=== PATIENT | male | born 1965 | race Caucasian/White ===

== ENCOUNTER 2016-07-10 08:53 | Inpatient (IN) | payer MEDICARE, OTHER ==
[~2016-07-10] VITALS: Ht 182.9 cm; Wt 147.4 kg
[~2016-07-10 08:53] MED LIST: ALDACTONE25 MG PO; CARDIZEM CD180 MG PO; CATAPRES 0.1MG0.1 MG PO; CEFTRIAXONE2 GM IV; COREG 25MG TAB25 MG PO; COREG CR10 MG PO; FENOFIBRATE145 MG PO; FERRO-TIME325 MG PO; FUROSEMIDE80 MG PO; HYDRALAZINE HCL50 MG PO; IPRAT-ALBUT 0.5-3 ML INH; KLONOPIN TAB 00.5 MG PO; LANTUS SOL100 UNIT/1 SC; LANTUS100 UNIT/1 SQ; LEVOTHYROXINE50 MCG PO; LISINOPRIL20 MG PO; NORVASC 5 MG TAB5 MG PO; NOVOLOG 10100 UNITS1 SC; PERCOCET 5/325 T1 EA PO; PHOSLO 667 MG667 MG PO; PROAIR HFA8.5 GM INH; PROZAC 20 MG CA20 MG PO; SUBOXONE 8 MG-1 EACH PO; SUBOXONE 8 MG-1 EACH SL; SYMBICORT 160-1 INHA INH; VANCOMYCIN HCL750 MG IV; VENTOLIN HFA8 GM INH; VENTOLIN/PROVE0.5 ML INH; VIBRAMYCIN100 MG PO; VITAMIN C 500500 MG PO
[2016-07-10 09:15] LABS: HEMOGLOBIN 7.7 gm/dl (14.0-17.5); RED BLOOD COUNT 2.97 M/UL (4.20-5.50); WHITE BLOOD COUNT 10.7 K/UL (4.5-11.0)
[2016-07-10] MEDS ORDERED: COREG CR10 MG PO (12:15)
[2016-07-10] MEDS ORDERED: HYDROXYZINE HCL25 MG PO (12:18)
[2016-07-10] MEDS ORDERED: NEURONTIN 400400 MG PO (12:19)
[2016-07-10] MEDS ORDERED: BREO ELLIPTA 11 EACH INH (12:20)
[2016-07-10] MEDS ORDERED: IPRAT-ALBUT 0.5-3 ML INH (12:22)
[2016-07-10] MEDS ORDERED: ASPIR-LOW81 MG PO (12:28)
[2016-07-11 08:02] LABS: RED BLOOD COUNT 2.65 M/UL (4.20-5.50)
[2016-07-11 08:03] LABS: HEMOGLOBIN 6.8 gm/dl (14.0-17.5)
[2016-07-12 04:32] LABS: HEMOGLOBIN 7.2 gm/dl (14.0-17.5); RED BLOOD COUNT 2.75 M/UL (4.20-5.50); WHITE BLOOD COUNT 8.1 K/UL (4.5-11.0)
[2016-07-13 04:09] LABS: HEMOGLOBIN 7.8 gm/dl (14.0-17.5); RED BLOOD COUNT 2.99 M/UL (4.20-5.50); WHITE BLOOD COUNT 7.1 K/UL (4.5-11.0)
[2016-07-14 05:41] LABS: HEMOGLOBIN 9.9 gm/dl (14.0-17.5); RED BLOOD COUNT 3.67 M/UL (4.20-5.50); WHITE BLOOD COUNT 10.2 K/UL (4.5-11.0)
[2016-07-14 15:09] LABS: URINE CREATININE 27.7 mg/dL
[2016-07-15 03:47] LABS: RED BLOOD COUNT 2.81 M/UL (4.20-5.50); WHITE BLOOD COUNT 6.6 K/UL (4.5-11.0)
[2016-07-15 03:48] LABS: HEMOGLOBIN 7.4 gm/dl (14.0-17.5)
[2016-07-16 03:56] LABS: HEMOGLOBIN 7.3 gm/dl (14.0-17.5); RED BLOOD COUNT 2.7 M/UL (4.20-5.50); WHITE BLOOD COUNT 6.2 K/UL (4.5-11.0)
[2016-07-17 05:06] LABS: HEMOGLOBIN 7.2 gm/dl (14.0-17.5); RED BLOOD COUNT 2.75 M/UL (4.20-5.50); WHITE BLOOD COUNT 5.5 K/UL (4.5-11.0)
[2016-07-17] MEDS ORDERED: PIPERACIL-TAZ2.25 GM IV (18:28)
[2016-07-17] MEDS ORDERED: SODIUM CL 0.91000 ML IV (18:31)
[2016-07-18 04:09] LABS: HEMOGLOBIN 7.7 gm/dl (14.0-17.5); RED BLOOD COUNT 2.87 M/UL (4.20-5.50); WHITE BLOOD COUNT 5.3 K/UL (4.5-11.0)
[2016-07-18] MEDS ORDERED: FERROUS SULFAT325 M2 PO (20:20)
[2016-07-18] MEDS ORDERED: IMDUR ER TAB 6060 MG PO (20:21)
[2016-07-18] MEDS ORDERED: ZYVOX 600 MG T600 MG PO (20:21)
[2016-07-18] MEDS ORDERED: SPIRIVA HANDIH18 MCG INH (20:22)
[2016-07-18] MEDS ORDERED: VITAMIN C 500500 MG PO (20:28)
[2016-07-18] MEDS ORDERED: NORCO 7.5-3251 EACH PO (20:29)
[2016-12-02] MEDS ORDERED: PHOSLO 667 MG667 MG PO (22:13)
[2016-12-03] MEDS ORDERED: AMLODIPINE BESYL5 MG PO (11:04)
[2016-12-04] MEDS ORDERED: LACTULOSE20 GM/30 M PO (09:53)
[2016-12-04] MEDS ORDERED: SENNA-DOCUSATE1 EACH PO (09:56)
[2016-12-31] MEDS ORDERED: FENOFIBRATE145 MG PO (11:05)
[2017-01-17] MEDS ORDERED: BETADINE TP (15:11)
[2017-01-17] MEDS ORDERED: NYSTATIN1 EAC9 MC (15:13)
[2017-01-17] MEDS ORDERED: PROCRIT10000 UNIT INJ (15:23)
[2017-01-17] MEDS ORDERED: TYLENOL 325MG325 MG PO (15:34)
== END 2016-07-18 20:43 | disposition left against medical advice (07) | DRG 255 ==
LOC: ER1 08:53 → PROG CARE 10:43 → ZEROF 10:43 → PROG CARE 07-11 17:39
PROVIDERS: Emergency Medicine; Hospitalist; Internal Medicine Nephrology; Podiatrist Foot & Ankle Surgery; ADMIT Family Medicine
PROC: 30233N1 Transfusion of Nonautologous Red Blood Cells into Peripheral Vein, Percutaneous Approach (ICD-10-PCS; principal; 2016-07-11)
PROC: 0Y6S0Z1 Detachment at Left 2nd Toe, High, Open Approach (ICD-10-PCS; 2016-07-18 19:30)
PROC: 0HBNXZZ Excision of Left Foot Skin, External Approach (ICD-10-PCS; 2016-07-18 19:30)
DX: E11.52 Type 2 diabetes mellitus with diabetic peripheral angiopathy with gangrene (principal); I50.43 Acute on chronic combined systolic (congestive) and diastolic (congestive) heart failure; J96.21 Acute and chronic respiratory failure with hypoxia; G92 Toxic encephalopathy; J96.22 Acute and chronic respiratory failure with hypercapnia; M86.672 Other chronic osteomyelitis, left ankle and foot; I13.0 Hypertensive heart and chronic kidney disease with heart failure and stage 1 through stage 4 chronic kidney disease, or unspecified chronic kidney disease; E66.2 Morbid (severe) obesity with alveolar hypoventilation; N18.4 Chronic kidney disease, stage 4 (severe); E87.4 Mixed disorder of acid-base balance; Z68.41 Body mass index [BMI] 40.0-44.9, adult; T42.6X1A Poisoning by other antiepileptic and sedative-hypnotic drugs, accidental (unintentional), initial encounter; T40.4X1A Poisoning by other synthetic narcotics, accidental (unintentional), initial encounter; E11.621 Type 2 diabetes mellitus with foot ulcer; L97.529 Non-pressure chronic ulcer of other part of left foot with unspecified severity; Y92.009 Unspecified place in unspecified non-institutional (private) residence as the place of occurrence of the external cause; I20.9 Angina pectoris, unspecified; B95.62 Methicillin resistant Staphylococcus aureus infection as the cause of diseases classified elsewhere; E11.69 Type 2 diabetes mellitus with other specified complication; E78.5 Hyperlipidemia, unspecified; E03.9 Hypothyroidism, unspecified; E87.5 Hyperkalemia; D63.1 Anemia in chronic kidney disease; E11.65 Type 2 diabetes mellitus with hyperglycemia; F17.210 Nicotine dependence, cigarettes, uncomplicated; G89.4 Chronic pain syndrome; F41.9 Anxiety disorder, unspecified; Z91.19 Patient's noncompliance with other medical treatment and regimen; L81.8 Other specified disorders of pigmentation; Z99.81 Dependence on supplemental oxygen; Z87.01 Personal history of pneumonia (recurrent); J44.9 Chronic obstructive pulmonary disease, unspecified; D50.9 Iron deficiency anemia, unspecified; E11.22 Type 2 diabetes mellitus with diabetic chronic kidney disease; Z87.898 Personal history of other specified conditions; Z79.891 Long term (current) use of opiate analgesic; Z79.51 Long term (current) use of inhaled steroids; Z79.899 Other long term (current) drug therapy; Z88.8 Allergy status to other drugs, medicaments and biological substances; Z91.041 Radiographic dye allergy status; Z79.82 Long term (current) use of aspirin; Z79.4 Long term (current) use of insulin
CPT/HCPCS: 36415; 36600; 71010; 73630; 78315; 78452; 80048; 80053; 80307; 81001; 82009; 82550; 82553; 82570; 82575; 82728; 82803; 82962; 83036; 83540; 83550; 83605; 83735; 83874; 83880; 84132; 84484; 85025; 85027; 86140; 86850; 86900; 86901; 86920; 87040; 87070; 87075; 87077; 87186; 87205; 93005; 93017; 94060; 94640; 94660; 94664; 94729; 96365; 96366; 96367; 96375; 96376; 99285; A9502; A9503; J0610; J1644; J1815; J1817; J1940; J1956; J2020; J2060; J2250; J2270; J2310; J2543; J2785; J3010; J3370; J7030; J7050; J7120; P9016

== ENCOUNTER 2016-08-10 00:01 | Inpatient (IN) | payer MEDICARE, OTHER ==
[~2016-08-10] VITALS: Ht 188 cm; Wt 154.8 kg
[~2016-08-10 00:01] MED LIST changes: +ASPIR-LOW81 MG PO; +BREO ELLIPTA 11 EACH INH; +FERROUS SULFAT325 M2 PO; +HYDROXYZINE HCL25 MG PO; +IMDUR ER TAB 6060 MG PO; +NEURONTIN 400400 MG PO; +NORCO 7.5-3251 EACH PO; +PIPERACIL-TAZ2.25 GM IV; +SODIUM CL 0.91000 ML IV; +SPIRIVA HANDIH18 MCG INH; +ZYVOX 600 MG T600 MG PO
[2016-08-10 01:20] LABS: HEMOGLOBIN 7.8 gm/dl (14.0-17.5); RED BLOOD COUNT 2.94 M/UL (4.20-5.50); WHITE BLOOD COUNT 8.4 K/UL (4.5-11.0)
[2016-08-11 07:22] LABS: HEMOGLOBIN 7.1 gm/dl (14.0-17.5); RED BLOOD COUNT 2.65 M/UL (4.20-5.50); WHITE BLOOD COUNT 7.3 K/UL (4.5-11.0)
[2016-08-11 18:21] LABS: HEMOGLOBIN 7.1 gm/dl (14.0-17.5)
[2016-08-12 02:44] LABS: HEMOGLOBIN 7.5 gm/dl (14.0-17.5); RED BLOOD COUNT 2.8 M/UL (4.20-5.50); WHITE BLOOD COUNT 5.5 K/UL (4.5-11.0)
[2016-08-13 04:54] LABS: HEMOGLOBIN 7.8 gm/dl (14.0-17.5); RED BLOOD COUNT 2.89 M/UL (4.20-5.50); WHITE BLOOD COUNT 5.8 K/UL (4.5-11.0)
[2016-08-13 17:34] LABS: URINE CREATININE 62.6 mg/dL
[2016-08-14 04:40] LABS: HEMOGLOBIN 7.4 gm/dl (14.0-17.5); RED BLOOD COUNT 2.73 M/UL (4.20-5.50); WHITE BLOOD COUNT 5.7 K/UL (4.5-11.0)
[2016-08-15 06:07] LABS: RED BLOOD COUNT 2.97 M/UL (4.20-5.50); WHITE BLOOD COUNT 5.4 K/UL (4.5-11.0)
[2016-08-16] MEDS ORDERED: ALPRAZOLAM0.5 MG PO (17:50)
[2016-08-17 06:03] LABS: HEMOGLOBIN 7.7 gm/dl (14.0-17.5); RED BLOOD COUNT 2.85 M/UL (4.20-5.50); WHITE BLOOD COUNT 5.4 K/UL (4.5-11.0)
[2016-08-18 10:21] LABS: HEMOGLOBIN 7.9 gm/dl (14.0-17.5); RED BLOOD COUNT 2.9 M/UL (4.20-5.50); WHITE BLOOD COUNT 5.6 K/UL (4.5-11.0)
[2016-08-19 06:27] LABS: RED BLOOD COUNT 2.97 M/UL (4.20-5.50); WHITE BLOOD COUNT 6.1 K/UL (4.5-11.0)
[2016-08-20 05:36] LABS: RED BLOOD COUNT 2.96 M/UL (4.20-5.50)
[2016-08-21 04:29] LABS: HEMOGLOBIN 7.6 gm/dl (14.0-17.5); RED BLOOD COUNT 2.8 M/UL (4.20-5.50); WHITE BLOOD COUNT 5.6 K/UL (4.5-11.0)
--- NOTE | 2016-08-21 11:52 | NUR ---
PATIENT HAS BEEN GOING OFF THE FLOOR VIA WHEELCHAIR WITH .
--- NOTE | 2016-08-21 15:31 | NUR ---
PATIENT PULSE RANGES 140'S, NO S/SX OF CARDIAC INSUFFICIENCY NOTED. DR. RAMON NOTIFIED. ORDERS RECEIVED
[2016-08-21 15:54] LABS: HEMOGLOBIN 7.3 gm/dl (14.0-17.5)
[2016-08-22 06:22] LABS: HEMOGLOBIN 7.5 gm/dl (14.0-17.5); RED BLOOD COUNT 2.78 M/UL (4.20-5.50); WHITE BLOOD COUNT 6.3 K/UL (4.5-11.0)
--- NOTE | 2016-08-22 16:19 | NUR ---
REQUESTED TO ALLOW PATIENT TO SLEEP AND NOT TO BOTHER WHEN HE CAME BACK FROM PACU. PATIENT RESTING COMFORTABLY AT THIS TIME
[2016-08-23 06:28] LABS: HEMOGLOBIN 7.9 gm/dl (14.0-17.5); RED BLOOD COUNT 2.91 M/UL (4.20-5.50); WHITE BLOOD COUNT 7.7 K/UL (4.5-11.0)
[2016-12-02] MEDS ORDERED: PHOSLO 667 MG667 MG PO (22:13)
[2016-12-03] MEDS ORDERED: AMLODIPINE BESYL5 MG PO (11:04)
[2016-12-04] MEDS ORDERED: LACTULOSE20 GM/30 M PO (09:53)
[2016-12-04] MEDS ORDERED: SENNA-DOCUSATE1 EACH PO (09:56)
[2016-12-31] MEDS ORDERED: FENOFIBRATE145 MG PO (11:05)
[2017-01-17] MEDS ORDERED: BETADINE TP (15:11)
[2017-01-17] MEDS ORDERED: NYSTATIN1 EAC9 MC (15:13)
[2017-01-17] MEDS ORDERED: PROCRIT10000 UNIT INJ (15:23)
[2017-01-17] MEDS ORDERED: TYLENOL 325MG325 MG PO (15:34)
== END 2016-08-23 12:45 | disposition left against medical advice (07) | DRG 673 ==
LOC: ER1 00:01 → ZEROF 02:50 → MED SURG 4 02:50
PROVIDERS: Emergency Medicine; Family Medicine; Hospitalist; Internal Medicine; Internal Medicine Infectious Disease; Internal Medicine Nephrology; Surgery; ADMIT Internal Medicine
PROC: 30233N1 Transfusion of Nonautologous Red Blood Cells into Peripheral Vein, Percutaneous Approach (ICD-10-PCS; 2016-08-11)
PROC: 5A1D60Z (ICD-10-PCS; 2016-08-18)
PROC: 04HK33Z Insertion of Infusion Device into Right Femoral Artery, Percutaneous Approach (ICD-10-PCS; 2016-08-18)
PROC: 02HV33Z Insertion of Infusion Device into Superior Vena Cava, Percutaneous Approach (ICD-10-PCS; 2016-08-22)
PROC: B518ZZA Fluoroscopy of Superior Vena Cava, Guidance (ICD-10-PCS; 2016-08-22)
PROC: B548ZZA Ultrasonography of Superior Vena Cava, Guidance (ICD-10-PCS; 2016-08-22)
PROC: 0JH63XZ Insertion of Tunneled Vascular Access Device into Chest Subcutaneous Tissue and Fascia, Percutaneous Approach (ICD-10-PCS; principal; 2016-08-22 13:00)
DX: N17.9 Acute kidney failure, unspecified (principal); I50.33 Acute on chronic diastolic (congestive) heart failure; J96.22 Acute and chronic respiratory failure with hypercapnia; J96.21 Acute and chronic respiratory failure with hypoxia; G93.40 Encephalopathy, unspecified; I13.2 Hypertensive heart and chronic kidney disease with heart failure and with stage 5 chronic kidney disease, or end stage renal disease; E87.2 Acidosis; M86.672 Other chronic osteomyelitis, left ankle and foot; E66.2 Morbid (severe) obesity with alveolar hypoventilation; Z68.42 Body mass index [BMI] 45.0-49.9, adult; Q61.01 Congenital single renal cyst; E11.22 Type 2 diabetes mellitus with diabetic chronic kidney disease; N18.6 End stage renal disease; D63.1 Anemia in chronic kidney disease; E87.5 Hyperkalemia; I25.119 Atherosclerotic heart disease of native coronary artery with unspecified angina pectoris; E11.21 Type 2 diabetes mellitus with diabetic nephropathy; E11.40 Type 2 diabetes mellitus with diabetic neuropathy, unspecified; E11.69 Type 2 diabetes mellitus with other specified complication; B95.62 Methicillin resistant Staphylococcus aureus infection as the cause of diseases classified elsewhere; J44.9 Chronic obstructive pulmonary disease, unspecified; E03.9 Hypothyroidism, unspecified; I27.2 Other secondary pulmonary hypertension; I87.8 Other specified disorders of veins; E78.5 Hyperlipidemia, unspecified; M51.36 Other intervertebral disc degeneration, lumbar region; G89.4 Chronic pain syndrome; R00.0 Tachycardia, unspecified; R74.8 Abnormal levels of other serum enzymes; F17.210 Nicotine dependence, cigarettes, uncomplicated; K59.00 Constipation, unspecified; F41.9 Anxiety disorder, unspecified; Z86.718 Personal history of other venous thrombosis and embolism; Z91.11 Patient's noncompliance with dietary regimen; Z91.19 Patient's noncompliance with other medical treatment and regimen; Z99.81 Dependence on supplemental oxygen; Z79.51 Long term (current) use of inhaled steroids; Z79.4 Long term (current) use of insulin; Z79.891 Long term (current) use of opiate analgesic; Z79.82 Long term (current) use of aspirin; Z79.899 Other long term (current) drug therapy; Z88.8 Allergy status to other drugs, medicaments and biological substances; Z88.5 Allergy status to narcotic agent; Z91.041 Radiographic dye allergy status; Z89.412 Acquired absence of left great toe; Z89.422 Acquired absence of other left toe(s); Z90.49 Acquired absence of other specified parts of digestive tract; Z98.890 Other specified postprocedural states; Z80.1 Family history of malignant neoplasm of trachea, bronchus and lung; Z80.41 Family history of malignant neoplasm of ovary; Z82.3 Family history of stroke; Z82.49 Family history of ischemic heart disease and other diseases of the circulatory system; Z83.3 Family history of diabetes mellitus
CPT/HCPCS: 36415; 36600; 71010; 71020; 77001; 80048; 80053; 80069; 80074; 81001; 82272; 82550; 82553; 82570; 82575; 82607; 82728; 82803; 82962; 83540; 83550; 83735; 83874; 83880; 84100; 84132; 84484; 85014; 85018; 85025; 85027; 85610; 85730; 86140; 86850; 86900; 86901; 86920; 87077; 87086; 87186; 90935; 90937; 93005; 94640; 94664; 99285; C1769; G0378; J0690; J1644; J1940; J2250; J7030; J7040; J7050; J7120; P9016; Q0163; Q4081

== ENCOUNTER 2016-08-24 00:09 | Emergency (ER) | payer MEDICARE, OTHER ==
[~2016-08-24 00:09] MED LIST changes: +ALPRAZOLAM0.5 MG PO
[2016-12-02] MEDS ORDERED: PHOSLO 667 MG667 MG PO (22:13)
[2016-12-03] MEDS ORDERED: AMLODIPINE BESYL5 MG PO (11:04)
[2016-12-04] MEDS ORDERED: LACTULOSE20 GM/30 M PO (09:53)
[2016-12-04] MEDS ORDERED: SENNA-DOCUSATE1 EACH PO (09:56)
[2016-12-31] MEDS ORDERED: FENOFIBRATE145 MG PO (11:05)
[2017-01-17] MEDS ORDERED: BETADINE TP (15:11)
[2017-01-17] MEDS ORDERED: NYSTATIN1 EAC9 MC (15:13)
[2017-01-17] MEDS ORDERED: PROCRIT10000 UNIT INJ (15:23)
[2017-01-17] MEDS ORDERED: TYLENOL 325MG325 MG PO (15:34)
== END 2016-08-24 00:30 | disposition left against medical advice (07) ==
LOC: ER1 00:09
DX: Z49.01 Encounter for fitting and adjustment of extracorporeal dialysis catheter (principal); R00.0 Tachycardia, unspecified; Z91.041 Radiographic dye allergy status
CPT/HCPCS: 99284

== ENCOUNTER 2016-08-27 02:49 | Inpatient (IN) | payer MEDICARE, OTHER ==
[~2016-08-27] VITALS: Ht 186.7 cm; Wt 149.7 kg
[2016-08-27 03:32] LABS: HEMOGLOBIN 8.8 gm/dl (14.0-17.5); RED BLOOD COUNT 3.26 M/UL (4.20-5.50); WHITE BLOOD COUNT 9.5 K/UL (4.5-11.0)
[2016-08-27 03:54] LABS: BUN/CREATININE RATIO 9 (0-10)
[2016-08-27] MEDS ORDERED: DULERA 100 MCG8.8 GM INH (14:41)
[2016-08-27] MEDS ORDERED: COREG CR 10 MG10 MG PO (14:54)
[2016-08-27] MEDS ORDERED: DILTIAZEM 24HR360 MG PO (14:55)
[2016-08-27] MEDS ORDERED: NEURONTIN 400400 MG PO (14:56)
[2016-08-27] MEDS ORDERED: LASIX 40 MG TAB40 MG PO (14:57)
[2016-08-27] MEDS ORDERED: FENOFIBRATE145 MG PO (15:19)
[2016-08-27] MEDS ORDERED: PROZAC 20 MG CA20 MG PO (15:20)
[2016-08-27] MEDS ORDERED: SYNTHROID 50 M50 MCG PO (15:20)
[2016-08-27] MEDS ORDERED: SPIRONOLACTONE25 MG PO (15:21)
[2016-08-27] MEDS ORDERED: ZYVOX 600 MG T600 MG PO (15:22)
[2016-08-27] MEDS ORDERED: VIBRAMYCIN 100100 MG PO (15:22)
[2016-08-28 06:04] LABS: HEMOGLOBIN 7.1 gm/dl (14.0-17.5); WHITE BLOOD COUNT 8.2 K/UL (4.5-11.0)
[2016-08-28 06:13] LABS: RED BLOOD COUNT 2.62 M/UL (4.20-5.50)
[2016-08-28 06:24] LABS: BUN/CREATININE RATIO 10 (0-10)
[2016-08-29 13:50] LABS: RED BLOOD COUNT 2.56 M/UL (4.20-5.50); WHITE BLOOD COUNT 6.6 K/UL (4.5-11.0)
[2016-08-30 04:56] LABS: RED BLOOD COUNT 2.57 M/UL (4.20-5.50); WHITE BLOOD COUNT 7.9 K/UL (4.5-11.0)
[2016-08-30 05:02] LABS: HEMOGLOBIN 6.9 gm/dl (14.0-17.5)
[2016-08-31 13:22] LABS: HEMOGLOBIN 8.9 gm/dl (14.0-17.5); RED BLOOD COUNT 3.24 M/UL (4.20-5.50); WHITE BLOOD COUNT 8.6 K/UL (4.5-11.0)
[2016-09-01 10:01] LABS: HEMOGLOBIN 8.3 gm/dl (14.0-17.5); RED BLOOD COUNT 3.06 M/UL (4.20-5.50); WHITE BLOOD COUNT 8.3 K/UL (4.5-11.0)
[2016-09-01] MEDS ORDERED: LIPITOR TAB 2020 MG PO (13:15)
[2016-09-01] MEDS ORDERED: CATAPRES 0.1MG0.1 MG PO (13:16)
[2016-09-01] MEDS ORDERED: LANTUS100 UNIT/1 SQ (13:18)
[2016-09-01] MEDS ORDERED: COUMADIN 2.5MG2.5 MG PO (13:19)
[2016-09-01] MEDS ORDERED: PROCRIT10000 UNIT INJ (13:40)
[2016-09-01] MEDS ORDERED: ENSURE LIQUID237 ML PO (13:42)
[2016-12-02] MEDS ORDERED: PHOSLO 667 MG667 MG PO (22:13)
[2016-12-03] MEDS ORDERED: AMLODIPINE BESYL5 MG PO (11:04)
[2016-12-04] MEDS ORDERED: LACTULOSE20 GM/30 M PO (09:53)
[2016-12-04] MEDS ORDERED: SENNA-DOCUSATE1 EACH PO (09:56)
[2016-12-31] MEDS ORDERED: FENOFIBRATE145 MG PO (11:05)
[2017-01-17] MEDS ORDERED: BETADINE TP (15:11)
[2017-01-17] MEDS ORDERED: NYSTATIN1 EAC9 MC (15:13)
[2017-01-17] MEDS ORDERED: PROCRIT10000 UNIT INJ (15:23)
[2017-01-17] MEDS ORDERED: TYLENOL 325MG325 MG PO (15:34)
== END 2016-09-01 14:16 | disposition home or self-care (01) | DRG 286 ==
LOC: ER1 02:49 → PROG CARE 05:00 → ZEROF 05:00 → M/S 05:00 → PROG CARE 13:52 → M/S 08-30 09:31
PROVIDERS: Emergency Medicine; Internal Medicine; ADMIT Internal Medicine
PROC: 30233N1 Transfusion of Nonautologous Red Blood Cells into Peripheral Vein, Percutaneous Approach (ICD-10-PCS; principal; 2016-08-28)
PROC: 4A023N7 Measurement of Cardiac Sampling and Pressure, Left Heart, Percutaneous Approach (ICD-10-PCS; 2016-08-29)
PROC: B2111ZZ Fluoroscopy of Multiple Coronary Arteries using Low Osmolar Contrast (ICD-10-PCS; 2016-08-29)
PROC: B51C1ZA Fluoroscopy of Left Lower Extremity Veins using Low Osmolar Contrast, Guidance (ICD-10-PCS; 2016-08-30)
PROC: 06HN33Z Insertion of Infusion Device into Left Femoral Vein, Percutaneous Approach (ICD-10-PCS; 2016-08-30)
PROC: 05HM33Z Insertion of Infusion Device into Right Internal Jugular Vein, Percutaneous Approach (ICD-10-PCS; 2016-08-31)
PROC: B5131ZA Fluoroscopy of Right Jugular Veins using Low Osmolar Contrast, Guidance (ICD-10-PCS; 2016-08-31)
PROC: 5A1D00Z (ICD-10-PCS; 2016-08-31)
DX: I48.92 Unspecified atrial flutter (principal); I50.33 Acute on chronic diastolic (congestive) heart failure; I13.2 Hypertensive heart and chronic kidney disease with heart failure and with stage 5 chronic kidney disease, or end stage renal disease; N18.5 Chronic kidney disease, stage 5; I20.8 Other forms of angina pectoris; J44.9 Chronic obstructive pulmonary disease, unspecified; E11.22 Type 2 diabetes mellitus with diabetic chronic kidney disease; Z91.14 Patient's other noncompliance with medication regimen; F17.210 Nicotine dependence, cigarettes, uncomplicated; I48.91 Unspecified atrial fibrillation; E11.42 Type 2 diabetes mellitus with diabetic polyneuropathy; E03.9 Hypothyroidism, unspecified; R53.81 Other malaise; E78.5 Hyperlipidemia, unspecified; R06.00 Dyspnea, unspecified; R60.1 Generalized edema; E87.70 Fluid overload, unspecified; D63.1 Anemia in chronic kidney disease; Z79.891 Long term (current) use of opiate analgesic; Z99.81 Dependence on supplemental oxygen; Z79.4 Long term (current) use of insulin; Z82.49 Family history of ischemic heart disease and other diseases of the circulatory system; Z82.3 Family history of stroke; Z80.1 Family history of malignant neoplasm of trachea, bronchus and lung; Z91.041 Radiographic dye allergy status; Z79.82 Long term (current) use of aspirin; Z79.899 Other long term (current) drug therapy; Z79.51 Long term (current) use of inhaled steroids; Z87.898 Personal history of other specified conditions
CPT/HCPCS: 36415; 36600; 70450; 71010; 77001; 80048; 80053; 80069; 82550; 82553; 82728; 82803; 82962; 83540; 83550; 83605; 83690; 83735; 83874; 83880; 84443; 84484; 85025; 85027; 85610; 85730; 86850; 86900; 86901; 86920; 87040; 90935; 90937; 93005; 94640; 94660; 96374; 96375; 99284; 99285; C1752; C1769; C1894; J0583; J0885; J1200; J1644; J1720; J2250; J2270; J2405; J2930; J3010; J7030; J7040; J7050; J7120; P9016; Q0163; Q9965

== ENCOUNTER 2016-10-01 21:23 | Emergency (ER) | payer MEDICARE, OTHER ==
[~2016-10-01 21:23] MED LIST changes: +COREG CR 10 MG10 MG PO; +COUMADIN 2.5MG2.5 MG PO; +DILTIAZEM 24HR360 MG PO; +DULERA 100 MCG8.8 GM INH; +ENSURE LIQUID237 ML PO; +LASIX 40 MG TAB40 MG PO; +LIPITOR TAB 2020 MG PO; +PROCRIT10000 UNIT INJ; +SPIRONOLACTONE25 MG PO; +SYNTHROID 50 M50 MCG PO; +VIBRAMYCIN 100100 MG PO
[2016-10-01 23:35] LABS: HEMOGLOBIN 8.9 gm/dl (14.0-17.5); RED BLOOD COUNT 3.34 M/UL (4.20-5.50)
[2016-12-02] MEDS ORDERED: PHOSLO 667 MG667 MG PO (22:13)
[2016-12-03] MEDS ORDERED: AMLODIPINE BESYL5 MG PO (11:04)
[2016-12-04] MEDS ORDERED: LACTULOSE20 GM/30 M PO (09:53)
[2016-12-04] MEDS ORDERED: SENNA-DOCUSATE1 EACH PO (09:56)
[2016-12-31] MEDS ORDERED: FENOFIBRATE145 MG PO (11:05)
[2017-01-17] MEDS ORDERED: BETADINE TP (15:11)
[2017-01-17] MEDS ORDERED: NYSTATIN1 EAC9 MC (15:13)
[2017-01-17] MEDS ORDERED: PROCRIT10000 UNIT INJ (15:23)
[2017-01-17] MEDS ORDERED: TYLENOL 325MG325 MG PO (15:34)
== END 2016-10-02 00:40 | disposition left against medical advice (07) ==
LOC: ER1 21:23
PROVIDERS: Family Medicine
DX: N50.89 Other specified disorders of the male genital organs (principal); J45.909 Unspecified asthma, uncomplicated; E11.9 Type 2 diabetes mellitus without complications; F17.210 Nicotine dependence, cigarettes, uncomplicated; I10 Essential (primary) hypertension; Z79.4 Long term (current) use of insulin
CPT/HCPCS: 36415; 76870; 80053; 82150; 83690; 85025; 94664; 99283

== ENCOUNTER 2016-10-08 21:37 | Emergency (ER) | payer MEDICARE, OTHER ==
[2016-10-08 23:36] LABS: HEMOGLOBIN 8.8 gm/dl (14.0-17.5); RED BLOOD COUNT 3.31 M/UL (4.20-5.50)
[2016-10-09] MEDS ORDERED: COREG 25MG TAB25 MG PO (23:19)
[2016-10-09] MEDS ORDERED: CARDIZEM CD180 MG PO (23:21)
[2016-10-09] MEDS ORDERED: PROZAC20 MG PO (23:22)
[2016-10-09] MEDS ORDERED: LASIX80 MG PO (23:23)
[2016-10-09] MEDS ORDERED: LANTUS INS100 UTS/M1 SQ (23:27)
[2016-12-02] MEDS ORDERED: PHOSLO 667 MG667 MG PO (22:13)
[2016-12-03] MEDS ORDERED: AMLODIPINE BESYL5 MG PO (11:04)
[2016-12-04] MEDS ORDERED: LACTULOSE20 GM/30 M PO (09:53)
[2016-12-04] MEDS ORDERED: SENNA-DOCUSATE1 EACH PO (09:56)
[2016-12-31] MEDS ORDERED: FENOFIBRATE145 MG PO (11:05)
[2017-01-17] MEDS ORDERED: BETADINE TP (15:11)
[2017-01-17] MEDS ORDERED: NYSTATIN1 EAC9 MC (15:13)
[2017-01-17] MEDS ORDERED: PROCRIT10000 UNIT INJ (15:23)
[2017-01-17] MEDS ORDERED: TYLENOL 325MG325 MG PO (15:34)
== END 2016-10-09 02:57 | disposition left against medical advice (07) ==
LOC: ER1 21:37
PROVIDERS: Family Medicine
DX: R22.9 Localized swelling, mass and lump, unspecified (principal); E11.9 Type 2 diabetes mellitus without complications; F17.210 Nicotine dependence, cigarettes, uncomplicated; N19 Unspecified kidney failure; Z79.4 Long term (current) use of insulin; Z91.041 Radiographic dye allergy status
CPT/HCPCS: 36415; 80053; 81001; 82150; 83690; 85025; 96374; 96376; 99284; J2270; J2405

== ENCOUNTER 2016-10-09 19:17 | Inpatient (IN) | payer MEDICARE, OTHER ==
[~2016-10-09] VITALS: Ht 188 cm; Wt 150.0 kg
[2016-10-09 19:32] LABS: HEMOGLOBIN 8.5 gm/dl (14.0-17.5); RED BLOOD COUNT 3.17 M/UL (4.20-5.50)
[2016-10-09 19:35] LABS: WHITE BLOOD COUNT 16.3 K/UL (4.5-11.0)
[2016-10-09 20:01] LABS: BUN/CREATININE RATIO 13 (0-10)
[2016-10-09] MEDS ORDERED: COREG 25MG TAB25 MG PO (23:19)
[2016-10-09] MEDS ORDERED: CARDIZEM CD180 MG PO (23:21)
[2016-10-09] MEDS ORDERED: PROZAC20 MG PO (23:22)
[2016-10-09] MEDS ORDERED: LASIX80 MG PO (23:23)
[2016-10-09] MEDS ORDERED: LANTUS INS100 UTS/M1 SQ (23:27)
[2016-10-10 03:58] LABS: HEMOGLOBIN 7.6 gm/dl (14.0-17.5); RED BLOOD COUNT 2.88 M/UL (4.20-5.50)
[2016-10-10 04:03] LABS: WHITE BLOOD COUNT 8.2 K/UL (4.5-11.0)
[2016-10-11 05:49] LABS: HEMOGLOBIN 7.3 gm/dl (14.0-17.5); RED BLOOD COUNT 2.71 M/UL (4.20-5.50); WHITE BLOOD COUNT 7.8 K/UL (4.5-11.0)
[2016-12-02] MEDS ORDERED: PHOSLO 667 MG667 MG PO (22:13)
[2016-12-03] MEDS ORDERED: AMLODIPINE BESYL5 MG PO (11:04)
[2016-12-04] MEDS ORDERED: LACTULOSE20 GM/30 M PO (09:53)
[2016-12-04] MEDS ORDERED: SENNA-DOCUSATE1 EACH PO (09:56)
[2016-12-31] MEDS ORDERED: FENOFIBRATE145 MG PO (11:05)
[2017-01-17] MEDS ORDERED: BETADINE TP (15:11)
[2017-01-17] MEDS ORDERED: NYSTATIN1 EAC9 MC (15:13)
[2017-01-17] MEDS ORDERED: PROCRIT10000 UNIT INJ (15:23)
[2017-01-17] MEDS ORDERED: TYLENOL 325MG325 MG PO (15:34)
== END 2016-10-11 14:27 | disposition left against medical advice (07) | DRG 917 ==
LOC: ER1 19:17 → ZEROF 21:04 → CCU 21:04
PROVIDERS: Emergency Medicine; Hospitalist; ADMIT Internal Medicine
PROC: 5A1945Z Respiratory Ventilation, 24-96 Consecutive Hours (ICD-10-PCS; principal; 2016-10-09)
PROC: 0BH17EZ Insertion of Endotracheal Airway into Trachea, Via Natural or Artificial Opening (ICD-10-PCS; 2016-10-09)
DX: T42.4X1A Poisoning by benzodiazepines, accidental (unintentional), initial encounter (principal); N18.6 End stage renal disease; J96.02 Acute respiratory failure with hypercapnia; G93.40 Encephalopathy, unspecified; I13.2 Hypertensive heart and chronic kidney disease with heart failure and with stage 5 chronic kidney disease, or end stage renal disease; I50.32 Chronic diastolic (congestive) heart failure; M86.672 Other chronic osteomyelitis, left ankle and foot; Z68.41 Body mass index [BMI] 40.0-44.9, adult; J44.9 Chronic obstructive pulmonary disease, unspecified; F17.210 Nicotine dependence, cigarettes, uncomplicated; E11.65 Type 2 diabetes mellitus with hyperglycemia; E11.22 Type 2 diabetes mellitus with diabetic chronic kidney disease; E66.01 Morbid (severe) obesity due to excess calories; G47.33 Obstructive sleep apnea (adult) (pediatric); E03.9 Hypothyroidism, unspecified; E78.5 Hyperlipidemia, unspecified; D63.1 Anemia in chronic kidney disease; Z89.421 Acquired absence of other right toe(s); Z99.2 Dependence on renal dialysis; Z91.15 Patient's noncompliance with renal dialysis; Z91.14 Patient's other noncompliance with medication regimen; Z79.4 Long term (current) use of insulin; Z79.84 Long term (current) use of oral hypoglycemic drugs; Z79.891 Long term (current) use of opiate analgesic; Z80.1 Family history of malignant neoplasm of trachea, bronchus and lung; Z82.49 Family history of ischemic heart disease and other diseases of the circulatory system; Z82.3 Family history of stroke
CPT/HCPCS: 31500; 36415; 36600; 71010; 80048; 80053; 80307; 81001; 82140; 82150; 82550; 82553; 82728; 82803; 82962; 83540; 83550; 83605; 83690; 83874; 84484; 85025; 85027; 85610; 85730; 87040; 87086; 90935; 90937; 94002; 94003; 94640; 94664; 96374; 96375; 96376; 99284; 99285; A4628; C9113; G0480; J0610; J0692; J0885; J1644; J1650; J1815; J2270; J2405; J2930; J3370; J7030; J7050; P9047

== ENCOUNTER 2020-06-08 08:04 | Inpatient (IN) | payer MEDICARE, OTHER ==
[~2020-06-08] VITALS: Ht 182.9 cm; Wt 101.3 kg
[~2020-06-08 08:04] MED LIST changes: +ALBUTEROL2.5 MG/3 M INH; +AMLODIPINE BESYL5 MG PO; +ANCEF IV 1000 MG1 GM IV; +ASPIR 8181 MG PO; +ASPIRIN EC81 MG PO; +ATORVASTATIN CA40 MG PO; +BETADINE TP; +BLOOD PRESSURE1 EAC1 MC; +BUPRENORPHIN-N1 EACH SL; +CATAPRES TTS 3 P1 EA TD; +CATAPRES-TTS 31 EACH TD; +CIPROFLOXACIN1 EACH OT; +CLONIDINE HCL0.2 MG PO; +COLACE 100MG C100 MG PO; +CONSTULOSE10 GM/15 M PO; +CYMBALTA 20 MG20 MG PO; +DEPAKOTE 250 M250 MG PO; +DEPAKOTE ER250 MG PO; +ELIQUIS2.5 MG PO; +FEOSOL325 MG PO; +GEODON20 MG PO; +HYDRALAZINE HCL25 MG PO; +KEPPRA500 MG PO; +LACTULOSE20 GM/30 M PO; +LANTUS INS100 UTS/M1 SQ; +LANTUS100 UNIT/1 SC; +LASIX40 MG PO; +LASIX80 MG PO; +LEVOFLOXACIN250 MG PO; +LIDOCAINE-PRILO30 GM TP; +LIPITOR40 MG PO; +LOPRESSOR 50 MG50 MG PO; +LOPRESSOR100 MG PO; +MEDIHONEY44 ML TP; +METOLAZONE10 MG PO; +NORCO 5-325 TA1 EACH PO; +NORVASC10 MG PO; +NOVOLOG 10100 UNITS/ INJ; +NYSTATIN1 EAC9 MC; +PHENERGAN 25 MG25 M1 PO; +PROTONIX 40 MG40 M1 PO; +PROVENTIL HFA 61 INH INH; +PROZAC 10 MG CA10 MG PO; +PROZAC20 MG PO; +RENAGEL800 MG PO; +RENVELA800 MG PO; +SENNA-DOCUSATE1 EACH PO; +SENSIPAR 30 MG30 MG PO; +SPIRIVA RESPIMAT4 GM INH; +SPIRIVA18 MCG INH; +SYMBICORT 16010.2 GM INH; +TRICOR145 MG PO; +TYLENOL 325MG325 MG PO; +VENTOLIN HFA 66.7 GM INH; +VISTARIL 50 MG50 MG PO; +VITAMIN D250000 UNIT PO; +ZIPRASIDONE HCL20 MG PO; +ZOLOFT25 MG PO
[2020-06-08 08:44] LABS: HEMOGLOBIN 9.9 gm/dl (14.0-17.5); RED BLOOD COUNT 3.5 M/UL (4.20-5.50); WHITE BLOOD COUNT 6.9 K/UL (4.5-11.0)
[2020-06-08 09:08] LABS: BUN/CREATININE RATIO 7 (0-10)
[2020-06-08] MEDS ORDERED: HYDRALAZINE HC100 MG PO (11:43)
[2020-06-08] MEDS ORDERED: NORVASC10 MG PO (11:44)
[2020-06-08] MEDS ORDERED: METOLAZONE10 MG PO (12:07)
[2020-06-08] MEDS ORDERED: LACTULOSE10 GM/152 PO (12:11)
[2020-06-08] MEDS ORDERED: CATAPRES0.2 MG PO (15:40)
[2020-06-08] MEDS ORDERED: ACETAMINOPHEN325 MG PO (15:47)
[2020-06-08] MEDS ORDERED: VITAMIN D31250 MCG PO (15:47)
[2020-06-08] MEDS ORDERED: GEODON20 MG PO (15:48)
[2020-06-08] MEDS ORDERED: SYMBICORT 160-1 INHA INH (20:50)
[2020-06-09 07:19] LABS: HEMOGLOBIN 9.5 gm/dl (14.0-17.5); RED BLOOD COUNT 3.27 M/UL (4.20-5.50); WHITE BLOOD COUNT 5.3 K/UL (4.5-11.0)
--- NOTE | 2020-06-09 20:13 | NUR ---
1900-UPON ASSESSMENT OF PATIENT HE STATED THAT HE WAS GOING HOME ONCE DIALYSIS WAS OVER THAT HE ONLY HAD 30 MINUTES LEFT. I NOTIFIED DR SOTELO AND THE PATIENTS . DR SOTELO SAID IF HE WANTED TO LEAVE THEN LET HIM SIGN OUT. 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 I EXPLAINED TO HER THAT PATIENT WAS ALERT AND ORIENTED AND WAS DEMANDING TO GO HOME. 1930-DIALYSIS IS COMPLETE AND PATIENT BECOMES VERY ANGRY AND STARTS HOLLERING FROM HIS ROOM. I GO IN TO ASSESS PATIENT AND HE TELLS ME HES LEAVING AND THERE WAS NOTHING WE COULD DO TO STOP HIM. I EXPLAINED TO PATIENT THAT I COULDN'T LET HIM LEAVE WITHOUT HIS COMING TO GET HIM. HE STARTED CUSSING ME, HE CALLED ME A "FAT WHORE" AND A "BITCH". I CALLED HIS AND TOLD HER THAT PATIENT WAS CUSSING ME AND SHE SAID HE DOES THAT TO ME ALL THE TIME YOU CAN'T TAKE IT TO HEART AND I SAID I UDNERSTAND THAT BUT IM NOT GOING TO LET HIM TALK TO ME LIKE THAT WHEN ALL IM TRYING TO DO IS HELP HIM STAY SAFE. I NOTIFIED DR BRAVO AND HE SAID HE WASN'T GOING TO DISCHARGE PATIENT EITHER TO TELL HIM TO STAY FOR DIALYSIS IN THE AM AND HE WOULD DISCHARGE HIM AFTERWARDS. I TOLD PATIENT AND HIS THIS INFO AND HE STARTED CUSSING AGAIN AND HE CAME OUT [facility]. I HAD TO CALL A BEVERLEY ROBINS ON HIM. I NOTIFIED MECHANICAL SERVICE TECHNICIAN OF THE SITUATION. I NOTIFIED DR SOTELO AGAIN AND HE ORDERED A GEODON SHOT BUT PATIENT REFUSED TO LET US GIVE IT TO HIM. SOHAM RN FROM ICU SPOKE TO PATIENTS ON SPEAKER PHONE AND TOLD HER THE SITUATION AND SHE AGREED TO COME GET THE PATIENT. SHE TOLD US SHE WOULD BE UP IN 10 MINUTES AND FOR US TO HAVE HIM OUTSIDE READY TO GO. I HAD PATIENT TO SIGN THE AMA FORM AND I NOTIFIED DR DELUCA AGAIN OF PATIENT DISCHARGE AMA.
[2020-08-30] MEDS ORDERED: AMLODIPINE BESY10 MG PO (07:01)
[2020-08-30] MEDS ORDERED: ELIQUIS2.5 MG PO (07:02)
[2020-08-30] MEDS ORDERED: ATORVASTATIN CA40 MG PO (07:02)
[2020-08-30] MEDS ORDERED: PROZAC20 MG PO (07:02)
[2020-08-30] MEDS ORDERED: ISOSORBIDE MONO60 MG PO (07:03)
[2020-08-30] MEDS ORDERED: HYDRALAZINE HC100 MG PO (07:03)
[2020-08-30] MEDS ORDERED: LEVETIRACETAM500 MG PO (07:04)
[2020-08-30] MEDS ORDERED: LEVOTHYROXINE50 MC1 PO (07:04)
[2020-08-30] MEDS ORDERED: LACTULOSE10 GM/15 M PO (07:04)
[2020-08-30] MEDS ORDERED: ROPINIROLE HCL1 MG PO (07:05)
[2020-08-30] MEDS ORDERED: PROTONIX40 MG PO (07:05)
[2020-08-30] MEDS ORDERED: ZIPRASIDONE HCL20 MG PO (07:05)
[2020-08-30] MEDS ORDERED: PROMETHAZINE HC25 M1 PO (07:05)
[2020-08-30] MEDS ORDERED: SEVELAMER HCL800 MG PO (07:06)
[2020-08-30] MEDS ORDERED: METOLAZONE10 MG PO (07:06)
[2020-08-30] MEDS ORDERED: CLONIDINE HCL0.2 MG PO (07:06)
[2020-08-30] MEDS ORDERED: LO-DOSE ASPIRIN81 MG PO (07:07)
[2020-08-30] MEDS ORDERED: SYMBICORT INH (07:07)
== END 2020-06-09 20:05 | disposition left against medical advice (07) | DRG 189 ==
LOC: ER1 08:04 → ZEROF 11:20 → CCU 17:47 → MED SURG 4 06-09 14:03
PROVIDERS: Emergency Medicine; Physician Assistant Medical; ADMIT Internal Medicine
PROC: 5A1D70Z Performance of Urinary Filtration, Intermittent, Less than 6 Hours Per Day (ICD-10-PCS; principal; 2020-06-08)
PROC: 5A1D70Z Performance of Urinary Filtration, Intermittent, Less than 6 Hours Per Day (ICD-10-PCS; 2020-06-09)
DX: J96.02 Acute respiratory failure with hypercapnia (principal); N18.6 End stage renal disease; I13.2 Hypertensive heart and chronic kidney disease with heart failure and with stage 5 chronic kidney disease, or end stage renal disease; I50.32 Chronic diastolic (congestive) heart failure; E87.5 Hyperkalemia; E03.9 Hypothyroidism, unspecified; I25.10 Atherosclerotic heart disease of native coronary artery without angina pectoris; Z20.822 Contact with and (suspected) exposure to COVID-19; F17.210 Nicotine dependence, cigarettes, uncomplicated; E11.22 Type 2 diabetes mellitus with diabetic chronic kidney disease; E78.5 Hyperlipidemia, unspecified; I08.0 Rheumatic disorders of both mitral and aortic valves; Z86.73 Personal history of transient ischemic attack (TIA), and cerebral infarction without residual deficits; Z86.718 Personal history of other venous thrombosis and embolism; Z99.2 Dependence on renal dialysis; Z88.8 Allergy status to other drugs, medicaments and biological substances; Z91.041 Radiographic dye allergy status; Z79.01 Long term (current) use of anticoagulants
CPT/HCPCS: ECHO; 36415; 36600; 71045; 80048; 80053; 82140; 82550; 82553; 82803; 82962; 83036; 83605; 83735; 83874; 83880; 84484; 85025; 85027; 87040; 90471; 90935; 90937; 93005; 93306; 94640; 94660; 94664; 94760; 96365; 96372; 96375; 99285; J0696; J1170; J2930; J3486; J7030; U0002

== ENCOUNTER → 2020-08-05 | Outpatient (CLI) | payer MEDICARE, OTHER ==
[~2020-08-05] MED LIST changes: +ACETAMINOPHEN325 MG PO; +AMLODIPINE BESY10 MG PO; +CATAPRES0.2 MG PO; +DOXYCYCLINE HY100 MG PO; +HYDRALAZINE HC100 MG PO; +ISOSORBIDE MONO60 MG PO; +LACTULOSE10 GM/15 M PO; +LACTULOSE10 GM/152 PO; +LEVETIRACETAM500 MG PO; +LEVOTHYROXINE50 MC1 PO; +LO-DOSE ASPIRIN81 MG PO; +PREDNISONE20 MG PO; +PROMETHAZINE HC25 M1 PO; +PROTONIX40 MG PO; +ROPINIROLE HCL1 MG PO; +SEVELAMER HCL800 MG PO; +SYMBICORT INH; +VITAMIN D31250 MCG PO
[2020-08-05 15:28] LABS: HEMOGLOBIN 12.6 gm/dl (14.0-17.5); RED BLOOD COUNT 4.16 M/UL (4.20-5.50); WHITE BLOOD COUNT 5.5 K/UL (4.5-11.0)
== END ==
LOC: EXRD 11:00 → US 11:30
PROVIDERS: Surgery
DX: E11.22 Type 2 diabetes mellitus with diabetic chronic kidney disease (principal); N18.6 End stage renal disease; M54.6 Pain in thoracic spine; M54.5 Low back pain; E78.5 Hyperlipidemia, unspecified; N52.9 Male erectile dysfunction, unspecified; E55.9 Vitamin D deficiency, unspecified; M47.814 Spondylosis without myelopathy or radiculopathy, thoracic region; M40.204 Unspecified kyphosis, thoracic region; Z99.2 Dependence on renal dialysis
CPT/HCPCS: 36415; 72070; 72100; 80053; 80061; 83036; 84439; 84443; 85025; 93986

== ENCOUNTER 2020-08-28 09:44 | Emergency (ER) | payer MEDICARE, OTHER ==
[~2020-08-28 09:44] MED LIST changes: -AMLODIPINE BESY10 MG PO; -DOXYCYCLINE HY100 MG PO; -ISOSORBIDE MONO60 MG PO; -LACTULOSE10 GM/15 M PO; -LEVETIRACETAM500 MG PO; -LEVOTHYROXINE50 MC1 PO; -LO-DOSE ASPIRIN81 MG PO; -PREDNISONE20 MG PO; -PROMETHAZINE HC25 M1 PO; -PROTONIX40 MG PO; -ROPINIROLE HCL1 MG PO; -SEVELAMER HCL800 MG PO; -SYMBICORT INH
[2020-08-28 10:33] LABS: HEMOGLOBIN 12.2 gm/dl (14.0-17.5); RED BLOOD COUNT 3.95 M/UL (4.20-5.50); WHITE BLOOD COUNT 5.1 K/UL (4.5-11.0)
[2020-08-28] MEDS ORDERED: DOXYCYCLINE HY100 MG PO (12:13)
[2020-08-28] MEDS ORDERED: PREDNISONE20 MG PO (12:13)
[2020-08-30] MEDS ORDERED: AMLODIPINE BESY10 MG PO (07:01)
[2020-08-30] MEDS ORDERED: ATORVASTATIN CA40 MG PO (07:02)
[2020-08-30] MEDS ORDERED: PROZAC20 MG PO (07:02)
[2020-08-30] MEDS ORDERED: ELIQUIS2.5 MG PO (07:02)
[2020-08-30] MEDS ORDERED: ISOSORBIDE MONO60 MG PO (07:03)
[2020-08-30] MEDS ORDERED: HYDRALAZINE HC100 MG PO (07:03)
[2020-08-30] MEDS ORDERED: LEVETIRACETAM500 MG PO (07:04)
[2020-08-30] MEDS ORDERED: LACTULOSE10 GM/15 M PO (07:04)
[2020-08-30] MEDS ORDERED: LEVOTHYROXINE50 MC1 PO (07:04)
[2020-08-30] MEDS ORDERED: ROPINIROLE HCL1 MG PO (07:05)
[2020-08-30] MEDS ORDERED: ZIPRASIDONE HCL20 MG PO (07:05)
[2020-08-30] MEDS ORDERED: PROTONIX40 MG PO (07:05)
[2020-08-30] MEDS ORDERED: PROMETHAZINE HC25 M1 PO (07:05)
[2020-08-30] MEDS ORDERED: SEVELAMER HCL800 MG PO (07:06)
[2020-08-30] MEDS ORDERED: METOLAZONE10 MG PO (07:06)
[2020-08-30] MEDS ORDERED: CLONIDINE HCL0.2 MG PO (07:06)
[2020-08-30] MEDS ORDERED: SYMBICORT INH (07:07)
[2020-08-30] MEDS ORDERED: LO-DOSE ASPIRIN81 MG PO (07:07)
== END 2020-08-28 12:23 | disposition home or self-care (01) ==
LOC: ER1 09:44
PROVIDERS: Family Medicine
DX: J44.1 Chronic obstructive pulmonary disease with (acute) exacerbation (principal); E11.9 Type 2 diabetes mellitus without complications; I10 Essential (primary) hypertension; Z90.49 Acquired absence of other specified parts of digestive tract; Z91.041 Radiographic dye allergy status; Z86.73 Personal history of transient ischemic attack (TIA), and cerebral infarction without residual deficits; F17.210 Nicotine dependence, cigarettes, uncomplicated
CPT/HCPCS: 36600; 71045; 80053; 82550; 82553; 82803; 83605; 83735; 83874; 83880; 84484; 85025; 85610; 93005; 94664; 94760; 96374; 99285; J2930

== ENCOUNTER → 2020-08-29 | Outpatient (CLI) | payer MEDICARE, OTHER ==
[~2020-08-29] MED LIST changes: +AMLODIPINE BESY10 MG PO; +DOXYCYCLINE HY100 MG PO; +ISOSORBIDE MONO60 MG PO; +LACTULOSE10 GM/15 M PO; +LEVETIRACETAM500 MG PO; +LEVOTHYROXINE50 MC1 PO; +LO-DOSE ASPIRIN81 MG PO; +PREDNISONE20 MG PO; +PROMETHAZINE HC25 M1 PO; +PROTONIX40 MG PO; +ROPINIROLE HCL1 MG PO; +SEVELAMER HCL800 MG PO; +SYMBICORT INH
[2020-08-29 14:43] LABS: HEMOGLOBIN 11.9 gm/dl (14.0-17.5); RED BLOOD COUNT 3.95 M/UL (4.20-5.50)
== END ==
LOC: OPSV2 13:00
PROVIDERS: Surgery
DX: Z01.818 Encounter for other preprocedural examination (principal); Z01.812 Encounter for preprocedural laboratory examination; Z01.810 Encounter for preprocedural cardiovascular examination; J43.9 Emphysema, unspecified; R91.8 Other nonspecific abnormal finding of lung field; R00.0 Tachycardia, unspecified; R94.31 Abnormal electrocardiogram [ECG] [EKG]; Z20.822 Contact with and (suspected) exposure to COVID-19
CPT/HCPCS: 36415; 71046; 80053; 85025; 85610; 85730; 86850; 86900; 86901; 93005; U0002; U0003

== ENCOUNTER → 2020-08-30 | Day surgery (SDC) | payer MEDICARE, OTHER | END | disposition home or self-care (01) | LOC: OR 06:32 | DX: I13.2 Hypertensive heart and chronic kidney disease with heart failure and with stage 5 chronic kidney disease, or end stage renal disease (principal); I25.2 Old myocardial infarction; I50.9 Heart failure, unspecified; J44.9 Chronic obstructive pulmonary disease, unspecified; J18.9 Pneumonia, unspecified organism; E78.5 Hyperlipidemia, unspecified; I82.401 Acute embolism and thrombosis of unspecified deep veins of right lower extremity; I48.91 Unspecified atrial fibrillation; F17.219 Nicotine dependence, cigarettes, with unspecified nicotine-induced disorders; G47.30 Sleep apnea, unspecified; K44.9 Diaphragmatic hernia without obstruction or gangrene; E03.9 Hypothyroidism, unspecified; E10.8 Type 1 diabetes mellitus with unspecified complications; F41.8 Other specified anxiety disorders; Z88.8 Allergy status to other drugs, medicaments and biological substances; Z86.73 Personal history of transient ischemic attack (TIA), and cerebral infarction without residual deficits | CPT/HCPCS: 82962; J0690; J1100; J1580; J1642; J1644; J2405; J2550; J2704; J2720; J2795; J3010; J7040; J7050; J7120; Q9962 ==

== ENCOUNTER → 2020-10-27 | Outpatient (CLI) | payer MEDICARE, OTHER | LOC: EXRD 15:00 | DX: M81.0 Age-related osteoporosis without current pathological fracture (principal); M85.89 Other specified disorders of bone density and structure, multiple sites | CPT/HCPCS: 77080 ==

== ENCOUNTER → 2020-11-10 | Outpatient (CLI) | payer MEDICARE, OTHER ==
[~2020-11-10] MED LIST changes: +ALBUTEROL2.5 MG/3 M NEB; +CLEOCIN HCL300 MG PO; +DAILY-VITE1 EACH PO; +DOCUSATE SODIU100 MG PO; +DOXYCYCLINE MO100 MG PO; +FORTAZ IV ADV1000 MG IV; +GEODON40 MG PO; +KEPPRA 250 MG250 MG PO; -LEVETIRACETAM500 MG PO; +PERCOCET 5-3251 EACH PO; +PROAIR DIGIHAL90 MCG INH; -SYMBICORT INH; +[UNRECOGNIZED DRUG - OTHER]
== END ==
LOC: WCC 13:15
PROC: 0JBK0ZZ Excision of Left Hand Subcutaneous Tissue and Fascia, Open Approach (ICD-10-PCS; principal; 2020-11-10)
PROC: 0JBJ0ZZ Excision of Right Hand Subcutaneous Tissue and Fascia, Open Approach (ICD-10-PCS; 2020-11-10)
DX: S61.251A Open bite of left index finger without damage to nail, initial encounter (principal); S61.253A Open bite of left middle finger without damage to nail, initial encounter; S61.250A Open bite of right index finger without damage to nail, initial encounter; S61.252A Open bite of right middle finger without damage to nail, initial encounter; S91.114A Laceration without foreign body of right lesser toe(s) without damage to nail, initial encounter; E11.52 Type 2 diabetes mellitus with diabetic peripheral angiopathy with gangrene; I96 Gangrene, not elsewhere classified; I13.2 Hypertensive heart and chronic kidney disease with heart failure and with stage 5 chronic kidney disease, or end stage renal disease; E11.22 Type 2 diabetes mellitus with diabetic chronic kidney disease; N18.6 End stage renal disease; I50.9 Heart failure, unspecified; J44.9 Chronic obstructive pulmonary disease, unspecified; F17.210 Nicotine dependence, cigarettes, uncomplicated; E11.36 Type 2 diabetes mellitus with diabetic cataract; H26.9 Unspecified cataract; D63.1 Anemia in chronic kidney disease; I48.91 Unspecified atrial fibrillation; E11.69 Type 2 diabetes mellitus with other specified complication; M86.8X9 Other osteomyelitis, unspecified sites; I25.10 Atherosclerotic heart disease of native coronary artery without angina pectoris; E11.622 Type 2 diabetes mellitus with other skin ulcer; E11.42 Type 2 diabetes mellitus with diabetic polyneuropathy; E83.39 Other disorders of phosphorus metabolism; F42.4 Excoriation (skin-picking) disorder; I25.2 Old myocardial infarction; G40.909 Epilepsy, unspecified, not intractable, without status epilepticus; E11.40 Type 2 diabetes mellitus with diabetic neuropathy, unspecified; Z99.2 Dependence on renal dialysis; Z86.73 Personal history of transient ischemic attack (TIA), and cerebral infarction without residual deficits; Z88.8 Allergy status to other drugs, medicaments and biological substances; Z91.041 Radiographic dye allergy status; Z79.01 Long term (current) use of anticoagulants; Z79.899 Other long term (current) drug therapy; X78.9XXA Intentional self-harm by unspecified sharp object, initial encounter
CPT/HCPCS: G0463

== ENCOUNTER → 2020-11-24 | Outpatient (CLI) | payer MEDICARE, OTHER | LOC: WCC 15:30 → RAD 15:55 | DX: S60.471A Other superficial bite of left index finger, initial encounter (principal); S60.473A Other superficial bite of left middle finger, initial encounter; I13.2 Hypertensive heart and chronic kidney disease with heart failure and with stage 5 chronic kidney disease, or end stage renal disease; I50.9 Heart failure, unspecified; E11.22 Type 2 diabetes mellitus with diabetic chronic kidney disease; N18.6 End stage renal disease; J44.9 Chronic obstructive pulmonary disease, unspecified; E11.42 Type 2 diabetes mellitus with diabetic polyneuropathy; I25.10 Atherosclerotic heart disease of native coronary artery without angina pectoris; F42.4 Excoriation (skin-picking) disorder; E83.39 Other disorders of phosphorus metabolism; Z99.2 Dependence on renal dialysis; Z72.0 Tobacco use; Z86.73 Personal history of transient ischemic attack (TIA), and cerebral infarction without residual deficits; X78.9XXA Intentional self-harm by unspecified sharp object, initial encounter | CPT/HCPCS: 73130 ==

== ENCOUNTER 2020-12-06 09:58 | Inpatient (IN) | payer MEDICARE, OTHER ==
[~2020-12-06] VITALS: Ht 182.9 cm; Wt 90.3 kg
[~2020-12-06 09:58] MED LIST changes: -ALBUTEROL2.5 MG/3 M NEB; -DAILY-VITE1 EACH PO; -DOCUSATE SODIU100 MG PO; -DOXYCYCLINE MO100 MG PO; -FORTAZ IV ADV1000 MG IV; -KEPPRA 250 MG250 MG PO; -PERCOCET 5-3251 EACH PO; -PROAIR DIGIHAL90 MCG INH; -PROMETHAZINE HC25 M1 PO; -ROPINIROLE HCL1 MG PO; -SEVELAMER HCL800 MG PO; -[UNRECOGNIZED DRUG - OTHER]
[2020-12-06 11:47] LABS: HEMOGLOBIN 9.4 gm/dl (14.0-17.5); RED BLOOD COUNT 2.98 M/UL (4.20-5.50); WHITE BLOOD COUNT 10.6 K/UL (4.5-11.0)
[2020-12-06] MEDS ORDERED: LOPRESSOR100 MG PO (14:21)
[2020-12-06] MEDS ORDERED: DAILY-VITE1 EACH PO (15:13)
[2020-12-06] MEDS ORDERED: SUBOXONE 8 MG-1 EACH SL (15:13)
[2020-12-06] MEDS ORDERED: DOCUSATE SODIU100 MG PO (15:14)
--- NOTE | 2020-12-06 19:49 | NUR ---
Dialysis nurse contacted me, updated me on patient status. Stated patient o2 saturation was 83%, now currently on non-rebreather. Informed me patient still very anxous, uncooperative. Dr. Titus notified. New orders for Geodon 20mg IM one-time. TM
[2020-12-07 02:57] LABS: HEMOGLOBIN 9.3 gm/dl (14.0-17.5); RED BLOOD COUNT 2.98 M/UL (4.20-5.50); WHITE BLOOD COUNT 9.5 K/UL (4.5-11.0)
--- NOTE | 2020-12-07 23:56 | NUR ---
PATIENT WAS THREATENING TO LEAVE AND RIPPED OUT IV. ME AND THE PATENTS , ALONG WITH OTHER STAFF MEMBERS EXPLAINED THE IMPORTANCE OF STAYING FOR MEDICAL ATTENTION. TI WAS CALLED AT 21:48 TO ASSIST IN THE SITUATION. SECURITY WAS ALSO CALLED DUE TO THREATS MADE TOWARDS AND STAFF. STATED THE PATIENT HAD STROKES IN THE PAST AND WAS UNABLE TO MAKE DECISIONS FOR HIMSELF AND SAID SHE WAS THE POA. THE IMPORTANCE OF SAFTEY WAS MENTIONED TO THE PATIENT ONCE AGAIN. AOC WAS INVOLVED AT 22:26 TO INTERVENE IN THE SITUATION SINCE MD DID NOT WANT TO DO ANYTING FOR THE PATIENT. MD WAS AWARE OF THE SITUATION AND WAS ASKED TO COME TO THE FLOOR MULTIPLE TIMES TO EXPLAIN THE IMPORTANCE OF STAYING. MD STATED HE WAS IN THE ER SEEING PATIENTS, THAT WE COULD EITHER GIVE HIM THE GEODON OR SIT AND WATCH HIM FOR 30 MINS. WHEN CALLED THE 2ND TIME HE STATED THAT "IF THE PATIENT WAS NOT OF RIGHT MIND AND HIS IS WILLING TO SIGN AMA, THERE IS NO REASON FOR ME TO COME UP THERE". PATIENT LEFT THE FLOOR AT 22:18 AND WAS UNABLE TO OBTAIN VITALS BEFORE LEAVING. SECURITY ESCORTED HIM AND HIS OUT.
[2020-12-08 08:14] LABS: HBSAG SCREEN Negative (Negative); HEP A AB, IGM Negative (Negative); HEP B CORE AB, IGM Negative (Negative); HEP C VIRUS AB <0.1 (0.0-0.9)
[2020-12-12] MEDS ORDERED: DOXYCYCLINE MO100 MG PO (13:53)
[2020-12-12] MEDS ORDERED: PERCOCET 5-3251 EACH PO (16:23)
== END 2020-12-07 22:18 | disposition left against medical advice (07) | DRG 299 ==
LOC: ER1 09:58 → CDU 14:02 → PROG CARE 14:02 → MED SURG 4 15:42 → PROG CARE 21:56
PROVIDERS: Emergency Medicine; Internal Medicine Nephrology; Physician Assistant; ADMIT Internal Medicine
PROC: 5A1D70Z Performance of Urinary Filtration, Intermittent, Less than 6 Hours Per Day (ICD-10-PCS; principal; 2020-12-06)
PROC: 5A1D70Z Performance of Urinary Filtration, Intermittent, Less than 6 Hours Per Day (ICD-10-PCS; 2020-12-07)
DX: I96 Gangrene, not elsewhere classified (principal); N18.6 End stage renal disease; I13.2 Hypertensive heart and chronic kidney disease with heart failure and with stage 5 chronic kidney disease, or end stage renal disease; I50.30 Unspecified diastolic (congestive) heart failure; J96.11 Chronic respiratory failure with hypoxia; I48.92 Unspecified atrial flutter; E87.1 Hypo-osmolality and hyponatremia; D63.1 Anemia in chronic kidney disease; K59.00 Constipation, unspecified; G40.909 Epilepsy, unspecified, not intractable, without status epilepticus; I25.10 Atherosclerotic heart disease of native coronary artery without angina pectoris; E11.22 Type 2 diabetes mellitus with diabetic chronic kidney disease; E11.52 Type 2 diabetes mellitus with diabetic peripheral angiopathy with gangrene; S61.201A Unspecified open wound of left index finger without damage to nail, initial encounter; S61.203A Unspecified open wound of left middle finger without damage to nail, initial encounter; L08.9 Local infection of the skin and subcutaneous tissue, unspecified; E87.5 Hyperkalemia; E78.5 Hyperlipidemia, unspecified; E03.9 Hypothyroidism, unspecified; F17.210 Nicotine dependence, cigarettes, uncomplicated; I48.91 Unspecified atrial fibrillation; I69.320 Aphasia following cerebral infarction; Z91.19 Patient's noncompliance with other medical treatment and regimen; Z88.8 Allergy status to other drugs, medicaments and biological substances; Z91.041 Radiographic dye allergy status; Z86.718 Personal history of other venous thrombosis and embolism; Z99.2 Dependence on renal dialysis; Z90.49 Acquired absence of other specified parts of digestive tract
CPT/HCPCS: 36600; 71045; 73130; 80048; 80053; 80074; 80202; 82803; 83605; 83735; 84100; 84132; 85025; 87040; 90937; 93005; 94640; 94660; 94664; 94760; 96365; 96375; 99284; G0257; J2543; J3370; J3486; J7030; J7070; U0002

== ENCOUNTER → 2020-12-08 | Outpatient (CLI) | payer MEDICARE, OTHER ==
[~2020-12-08] MED LIST changes: +ALBUTEROL2.5 MG/3 M NEB; +DAILY-VITE1 EACH PO; +DOCUSATE SODIU100 MG PO; +DOXYCYCLINE MO100 MG PO; +FORTAZ IV ADV1000 MG IV; +KEPPRA 250 MG250 MG PO; +PERCOCET 5-3251 EACH PO; +PROAIR DIGIHAL90 MCG INH; +PROMETHAZINE HC25 M1 PO; +ROPINIROLE HCL1 MG PO; +SEVELAMER HCL800 MG PO; +[UNRECOGNIZED DRUG - OTHER]
== END ==
LOC: WCC 14:29
DX: E11.628 Type 2 diabetes mellitus with other skin complications (principal); E11.22 Type 2 diabetes mellitus with diabetic chronic kidney disease; I13.2 Hypertensive heart and chronic kidney disease with heart failure and with stage 5 chronic kidney disease, or end stage renal disease; N18.6 End stage renal disease; J44.9 Chronic obstructive pulmonary disease, unspecified; E83.39 Other disorders of phosphorus metabolism; Z99.2 Dependence on renal dialysis; X78.9XXD Intentional self-harm by unspecified sharp object, subsequent encounter; Z72.0 Tobacco use
CPT/HCPCS: G0463

== ENCOUNTER → 2020-12-12 | Day surgery (SDC) | payer MEDICARE, OTHER ==
[~2020-12-12] VITALS: Ht 182.9 cm; Wt 95.3 kg
[2020-12-12 13:30] LABS: RED BLOOD COUNT 3.51 M/UL (4.20-5.50); WHITE BLOOD COUNT 12.5 K/UL (4.5-11.0)
== END | disposition home or self-care (01) ==
LOC: OR 12:47
PROVIDERS: Orthopaedic Surgery
DX: E11.52 Type 2 diabetes mellitus with diabetic peripheral angiopathy with gangrene (principal); E11.69 Type 2 diabetes mellitus with other specified complication; M86.142 Other acute osteomyelitis, left hand; M86.642 Other chronic osteomyelitis, left hand; M65.142 Other infective (teno)synovitis, left hand; I96 Gangrene, not elsewhere classified; L03.012 Cellulitis of left finger; J43.9 Emphysema, unspecified; I13.2 Hypertensive heart and chronic kidney disease with heart failure and with stage 5 chronic kidney disease, or end stage renal disease; E11.22 Type 2 diabetes mellitus with diabetic chronic kidney disease; N18.6 End stage renal disease; I50.9 Heart failure, unspecified; E11.42 Type 2 diabetes mellitus with diabetic polyneuropathy; D63.1 Anemia in chronic kidney disease; I48.91 Unspecified atrial fibrillation; J96.10 Chronic respiratory failure, unspecified whether with hypoxia or hypercapnia; G40.909 Epilepsy, unspecified, not intractable, without status epilepticus; E78.5 Hyperlipidemia, unspecified; I08.0 Rheumatic disorders of both mitral and aortic valves; E03.9 Hypothyroidism, unspecified; K21.9 Gastro-esophageal reflux disease without esophagitis; F17.210 Nicotine dependence, cigarettes, uncomplicated; Z99.81 Dependence on supplemental oxygen; Z86.73 Personal history of transient ischemic attack (TIA), and cerebral infarction without residual deficits; Z91.041 Radiographic dye allergy status; Z88.8 Allergy status to other drugs, medicaments and biological substances; Z79.2 Long term (current) use of antibiotics; Z79.899 Other long term (current) drug therapy; Z20.822 Contact with and (suspected) exposure to COVID-19
CPT/HCPCS: 36415; 71045; 80048; 82962; 85025; 87070; 87077; 87186; 87205; J0690; J1170; J2250; J2704; J3010; J3370; J7030; J7120; U0002

== ENCOUNTER 2020-12-15 11:23 | Inpatient (IN) | payer MEDICARE, OTHER ==
[~2020-12-15] VITALS: Ht 182.9 cm; Wt 96.6 kg
[~2020-12-15 11:23] MED LIST changes: -ALBUTEROL2.5 MG/3 M NEB; -FORTAZ IV ADV1000 MG IV; -KEPPRA 250 MG250 MG PO; -PROAIR DIGIHAL90 MCG INH; -PROMETHAZINE HC25 M1 PO; -ROPINIROLE HCL1 MG PO; -SEVELAMER HCL800 MG PO; -[UNRECOGNIZED DRUG - OTHER]
[2020-12-15 17:25] LABS: HEMOGLOBIN 8.1 gm/dl (14.0-17.5); RED BLOOD COUNT 2.6 M/UL (4.20-5.50); WHITE BLOOD COUNT 9.1 K/UL (4.5-11.0)
[2020-12-15 18:14] LABS: BUN/CREATININE RATIO 11 (0-10)
--- NOTE | 2020-12-15 18:37 | NUR ---
reported to dr. wilkins patient lab values and she is on her way to see patient.
--- NOTE | 2020-12-16 06:06 | NUR ---
WHEN DR. MURRELL WAS EVALUATING AND ASSESSING PT LAST NIGHT ON 12/15/20, STATED VERBAL ORDERS THAT IF POTASSIUM WAS LESS THAN 6.5, THEN CALL DIALYSIS NURSE AT 0630 THIS AM, IF >6.5 POTASSSIUM LEVEL, THEN NOTIFY DIALYSIS NURSE IMMEDIATELY FOR HEMODIALYSIS.
--- NOTE | 2020-12-16 06:20 | NUR ---
GARAGE DOOR OPENER INSTALLER VISHAL ALERTED THAT PT NEEDS TO HAVE HEMODIALYSIS TREATMENT THIS MORNING, PER DR. MURRELL. VISAHL MADISON STATED UNDERSTANDING.
[2020-12-16 07:35] LABS: HEMOGLOBIN 8.3 gm/dl (14.0-17.5); RED BLOOD COUNT 2.72 M/UL (4.20-5.50); WHITE BLOOD COUNT 8.8 K/UL (4.5-11.0)
--- NOTE | 2020-12-16 08:28 | NUR ---
PATIENT BROUGHT TO DIALYSIS ON O2 @ 3L HOME SETTINGS PATIENT COMPLAINING OF SHORTNESS OF AIR PATIENT O2 SAT AT 80% MD NOTIFIED GAVE ORDERS FOR BIPAP PT PLACED ON TELEMETRY W/ PULSE OX CRITICAL K OF 6.9 CALLED TO DIALYSIS NURSE WHO HAS STANDING ORDERS TO DIAYSISE
--- NOTE | 2020-12-16 17:33 | NUR ---
PATIENT EDUCATED ON RISKS OF SMOKING, AND ENCOURAGED TO NOT SMOKE ON HOSPITAL PROPERTY PT CHOOSES TO LEAVE FLOOR, WITH OXYGEN ON AND SMOKE MD NOTIFIED
[2020-12-16] MEDS ORDERED: PERCOCET 5/325 T1 EA PO (17:59)
[2020-12-16] MEDS ORDERED: FORTAZ IV ADV1000 MG IV (17:59)
== END 2020-12-16 18:35 | disposition home or self-care (01) | DRG 637 ==
LOC: M/S 14:35
PROVIDERS: Physician Assistant Medical; ADMIT Internal Medicine
PROC: 5A09357 Assistance with Respiratory Ventilation, Less than 24 Consecutive Hours, Continuous Positive Airway Pressure (ICD-10-PCS; principal; 2020-12-16)
PROC: 5A1D70Z Performance of Urinary Filtration, Intermittent, Less than 6 Hours Per Day (ICD-10-PCS; 2020-12-16)
DX: E11.69 Type 2 diabetes mellitus with other specified complication (principal); J96.21 Acute and chronic respiratory failure with hypoxia; E11.52 Type 2 diabetes mellitus with diabetic peripheral angiopathy with gangrene; Z20.822 Contact with and (suspected) exposure to COVID-19; M86.8X4 Other osteomyelitis, hand; I13.2 Hypertensive heart and chronic kidney disease with heart failure and with stage 5 chronic kidney disease, or end stage renal disease; E87.70 Fluid overload, unspecified; N18.6 End stage renal disease; E87.6 Hypokalemia; B96.89 Other specified bacterial agents as the cause of diseases classified elsewhere; G40.909 Epilepsy, unspecified, not intractable, without status epilepticus; I50.9 Heart failure, unspecified; E78.5 Hyperlipidemia, unspecified; E03.9 Hypothyroidism, unspecified; I25.10 Atherosclerotic heart disease of native coronary artery without angina pectoris; J44.9 Chronic obstructive pulmonary disease, unspecified; E87.5 Hyperkalemia; E11.22 Type 2 diabetes mellitus with diabetic chronic kidney disease; F17.210 Nicotine dependence, cigarettes, uncomplicated; Z79.4 Long term (current) use of insulin; Z91.15 Patient's noncompliance with renal dialysis; Z91.14 Patient's other noncompliance with medication regimen; Z86.73 Personal history of transient ischemic attack (TIA), and cerebral infarction without residual deficits; Z86.718 Personal history of other venous thrombosis and embolism; Z79.01 Long term (current) use of anticoagulants; Z90.49 Acquired absence of other specified parts of digestive tract; Z88.8 Allergy status to other drugs, medicaments and biological substances; Z91.041 Radiographic dye allergy status; Z82.49 Family history of ischemic heart disease and other diseases of the circulatory system; Z80.41 Family history of malignant neoplasm of ovary; Z80.1 Family history of malignant neoplasm of trachea, bronchus and lung; Z93.0 Tracheostomy status; Z79.82 Long term (current) use of aspirin
CPT/HCPCS: 36415; 71045; 80048; 80053; 82962; 83735; 84132; 85025; 85027; 85610; 87040; 87070; 87077; 87186; 87205; 93005; 94640; 94660; 94664; 94760; G0257; J0610; J0690; J0713; J1170; J2250; J2704; J3010; J3370; J7030; J7120; U0002

== ENCOUNTER 2020-12-22 18:55 | Emergency (ER) | payer MEDICARE, OTHER ==
[~2020-12-22 18:55] MED LIST changes: +FORTAZ IV ADV1000 MG IV
[2020-12-22 20:04] LABS: HEMOGLOBIN 7.6 gm/dl (14.0-17.5); RED BLOOD COUNT 2.49 M/UL (4.20-5.50); WHITE BLOOD COUNT 8.4 K/UL (4.5-11.0)
[2020-12-22 20:39] LABS: BUN/CREATININE RATIO 8 (0-10)
== END 2020-12-22 22:40 | disposition home or self-care (01) ==
LOC: ER1 18:55
PROVIDERS: Physician Assistant
DX: I13.0 Hypertensive heart and chronic kidney disease with heart failure and stage 1 through stage 4 chronic kidney disease, or unspecified chronic kidney disease (principal); I50.9 Heart failure, unspecified; N18.9 Chronic kidney disease, unspecified; F17.210 Nicotine dependence, cigarettes, uncomplicated; G40.909 Epilepsy, unspecified, not intractable, without status epilepticus; E78.5 Hyperlipidemia, unspecified; Z20.822 Contact with and (suspected) exposure to COVID-19; Z88.8 Allergy status to other drugs, medicaments and biological substances; Z91.15 Patient's noncompliance with renal dialysis
CPT/HCPCS: 36600; 70450; 71045; 80053; 82550; 82553; 82803; 83874; 84484; 85025; 85610; 85730; 93005; 94664; 96374; 96375; 99285; J0610; J1940; U0002

== ENCOUNTER 2021-01-04 01:05 | Emergency (ER) | payer MEDICARE, OTHER ==
[2021-01-04 01:35] LABS: HEMOGLOBIN 8.3 gm/dl (14.0-17.5); RED BLOOD COUNT 2.61 M/UL (4.20-5.50); WHITE BLOOD COUNT 6.9 K/UL (4.5-11.0)
[2021-01-04 01:55] LABS: BUN/CREATININE RATIO 5 (0-10)
[2021-01-04] MEDS ORDERED: [UNRECOGNIZED DRUG - OTHER] (04:59)
== END 2021-01-04 05:08 | disposition home or self-care (01) ==
LOC: ER1 01:05
PROVIDERS: Physician Assistant
DX: J96.90 Respiratory failure, unspecified, unspecified whether with hypoxia or hypercapnia (principal); R41.82 Altered mental status, unspecified; F17.200 Nicotine dependence, unspecified, uncomplicated; Z79.899 Other long term (current) drug therapy; Z20.822 Contact with and (suspected) exposure to COVID-19
CPT/HCPCS: 36600; 70450; 71045; 80053; 82140; 82803; 83605; 85025; 87040; 93005; 94660; 96374; 99285; J2310; U0002

== ENCOUNTER 2021-01-10 04:53 | Inpatient (IN) | payer MEDICARE, OTHER ==
[~2021-01-10] VITALS: Ht 182.9 cm; Wt 88.5 kg
[~2021-01-10 04:53] MED LIST changes: +[UNRECOGNIZED DRUG - OTHER]
[2021-01-10 06:27] LABS: HEMOGLOBIN 8.7 gm/dl (14.0-17.5); RED BLOOD COUNT 2.76 M/UL (4.20-5.50); WHITE BLOOD COUNT 9.9 K/UL (4.5-11.0)
[2021-01-10 06:53] LABS: BUN/CREATININE RATIO 6 (0-10)
[2021-01-10] MEDS ORDERED: ATORVASTATIN CA40 MG PO (07:02)
[2021-01-10] MEDS ORDERED: KEPPRA 250 MG250 MG PO (07:04)
[2021-01-10] MEDS ORDERED: PROMETHAZINE HC25 M1 PO (07:05)
[2021-01-10] MEDS ORDERED: ROPINIROLE HCL1 MG PO (07:05)
[2021-01-10] MEDS ORDERED: SEVELAMER HCL800 MG PO (07:06)
[2021-01-10] MEDS ORDERED: SPIRIVA RESPIMAT4 GM INH (14:22)
[2021-01-10] MEDS ORDERED: PROAIR DIGIHAL90 MCG INH (15:06)
[2021-01-10] MEDS ORDERED: ALBUTEROL2.5 MG/3 M NEB (15:09)
[2021-01-11 09:53] LABS: HEMOGLOBIN 8.9 gm/dl (14.0-17.5); RED BLOOD COUNT 2.68 M/UL (4.20-5.50); WHITE BLOOD COUNT 7.8 K/UL (4.5-11.0)
[2021-01-12 06:58] LABS: HEMOGLOBIN 8.5 gm/dl (14.0-17.5); RED BLOOD COUNT 2.77 M/UL (4.20-5.50); WHITE BLOOD COUNT 6.5 K/UL (4.5-11.0)
[2021-01-12 07:28] LABS: BUN/CREATININE RATIO 6 (0-10)
== END 2021-01-13 17:12 | disposition home or self-care (01) | DRG 91 ==
LOC: ER1 04:53 → M/S 08:17 → CDU 08:17 → M/S 01-11 17:32
PROVIDERS: Family Medicine; ADMIT Internal Medicine Infectious Disease
PROC: 5A09357 Assistance with Respiratory Ventilation, Less than 24 Consecutive Hours, Continuous Positive Airway Pressure (ICD-10-PCS; 2021-01-10)
PROC: 5A1D70Z Performance of Urinary Filtration, Intermittent, Less than 6 Hours Per Day (ICD-10-PCS; principal; 2021-01-11)
DX: G92 Toxic encephalopathy (principal); J96.21 Acute and chronic respiratory failure with hypoxia; Z20.822 Contact with and (suspected) exposure to COVID-19; J96.22 Acute and chronic respiratory failure with hypercapnia; N18.6 End stage renal disease; I50.32 Chronic diastolic (congestive) heart failure; I13.2 Hypertensive heart and chronic kidney disease with heart failure and with stage 5 chronic kidney disease, or end stage renal disease; M86.8X4 Other osteomyelitis, hand; R47.01 Aphasia; E78.5 Hyperlipidemia, unspecified; I25.10 Atherosclerotic heart disease of native coronary artery without angina pectoris; I48.91 Unspecified atrial fibrillation; D63.1 Anemia in chronic kidney disease; E03.9 Hypothyroidism, unspecified; J44.9 Chronic obstructive pulmonary disease, unspecified; E11.22 Type 2 diabetes mellitus with diabetic chronic kidney disease; G40.909 Epilepsy, unspecified, not intractable, without status epilepticus; E11.40 Type 2 diabetes mellitus with diabetic neuropathy, unspecified; G89.4 Chronic pain syndrome; F17.210 Nicotine dependence, cigarettes, uncomplicated; T50.995A Adverse effect of other drugs, medicaments and biological substances, initial encounter; Z99.2 Dependence on renal dialysis; Z91.15 Patient's noncompliance with renal dialysis; Z86.73 Personal history of transient ischemic attack (TIA), and cerebral infarction without residual deficits; Z79.01 Long term (current) use of anticoagulants; Z90.49 Acquired absence of other specified parts of digestive tract; Z79.82 Long term (current) use of aspirin; Z82.49 Family history of ischemic heart disease and other diseases of the circulatory system; Z80.41 Family history of malignant neoplasm of ovary; Z80.1 Family history of malignant neoplasm of trachea, bronchus and lung; Z82.3 Family history of stroke; Z79.4 Long term (current) use of insulin
CPT/HCPCS: 36415; 36600; 70450; 71045; 73130; 73718; 80048; 80053; 82009; 82803; 82962; 83036; 83605; 83735; 83880; 85025; 85652; 86140; 87040; 90935; 90937; 93005; 94640; 94660; 94664; 94760; 96372; 96374; 96375; 96376; 99285; G0378; J1335; J1630; J1644; J2270; J2997; J3486; U0002

== ENCOUNTER 2021-02-01 12:13 | Inpatient (IN) | payer MEDICARE, OTHER ==
[~2021-02-01] VITALS: Ht 182.9 cm; Wt 88.5 kg
[~2021-02-01 12:13] MED LIST changes: +ALBUTEROL2.5 MG/3 M NEB; +KEPPRA 250 MG250 MG PO; +PROAIR DIGIHAL90 MCG INH; +PROMETHAZINE HC25 M1 PO; +ROPINIROLE HCL1 MG PO; +SEVELAMER HCL800 MG PO
[2021-02-01 12:59] LABS: BUN/CREATININE RATIO 7 (0-10); HEMOGLOBIN 9.9 gm/dl (14.0-17.5); RED BLOOD COUNT 3.17 M/UL (4.20-5.50); WHITE BLOOD COUNT 12.2 K/UL (4.5-11.0)
--- NOTE | 2021-02-02 09:17 | NUR ---
PT AT 914. VIRIDIANA BANGURA RN AND NOLAN GALLO RN CONFIRMED AT 915. FAMILY IS AT BEDSIDE WITH PT.
--- NOTE | 2021-02-02 10:03 | NUR ---
CHRISTOPHER CALLED AT 0936 AND SANKET QUIGLEY ASSISTED THE CALL. PT IS NOT A CANDIDATE FOR CHRISTOPHER. CASE #: [id number]
== END 2021-02-02 12:50 | disposition expired | DRG 308 ==
LOC: ER1 12:13 → M/S 16:58 → CDU 16:58 → M/S 20:44
PROVIDERS: Student in an Organized Health Care Education/Training Program; ADMIT Internal Medicine
PROC: 5A12012 Performance of Cardiac Output, Single, Manual (ICD-10-PCS; principal; 2021-02-01)
DX: I49.9 Cardiac arrhythmia, unspecified (principal); N18.6 End stage renal disease; J96.21 Acute and chronic respiratory failure with hypoxia; Z51.5 Encounter for palliative care; Z20.822 Contact with and (suspected) exposure to COVID-19; I12.0 Hypertensive chronic kidney disease with stage 5 chronic kidney disease or end stage renal disease; M86.9 Osteomyelitis, unspecified; G40.909 Epilepsy, unspecified, not intractable, without status epilepticus; E11.9 Type 2 diabetes mellitus without complications; J44.9 Chronic obstructive pulmonary disease, unspecified; I48.91 Unspecified atrial fibrillation; E03.9 Hypothyroidism, unspecified; I25.10 Atherosclerotic heart disease of native coronary artery without angina pectoris; I35.8 Other nonrheumatic aortic valve disorders; E78.5 Hyperlipidemia, unspecified; D63.1 Anemia in chronic kidney disease; I46.2 Cardiac arrest due to underlying cardiac condition; Z99.2 Dependence on renal dialysis; I69.320 Aphasia following cerebral infarction; Z79.01 Long term (current) use of anticoagulants; Z93.0 Tracheostomy status; Z91.14 Patient's other noncompliance with medication regimen; Z90.49 Acquired absence of other specified parts of digestive tract; Z88.8 Allergy status to other drugs, medicaments and biological substances; Z91.041 Radiographic dye allergy status
CPT/HCPCS: 80053; 82550; 82553; 83690; 83874; 84484; 85025; 85610; 85730; 94002; 96374; 96375; 99285; J0171; J1170; J2060; J2270; J7070